=== PATIENT | male | born 1975 | race Caucasian/White ===

== ENCOUNTER 2017-03-27 11:19 | Emergency (ER) | payer BC, OTHER ==
[2017-03-27 11:30] VITALS: PULSE 65; RESP 16; TEMP 98.4; O2SAT 94
--- NOTE | 2017-03-27 11:33 | EDPHY ---
H & P Time Seen by Provider: 03/27/17 11:23 HPI/ROS: CHIEF COMPLAINT: Head trauma and facial laceration HISTORY OF PRESENT ILLNESS: Arrives by EMS, not a trauma activation. 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 Did not lose consciousness. Describes pain in the site of the impact with the laceration and some bleeding. Pain is mild to medium. No vomiting. No visual symptoms. No neck or back pain. REVIEW OF SYSTEMS: Eye: no change in vision, no double vision ENT: no sore throat Cardiac: no chest pain or syncope Pulmonary: no cough or SOB Abdomen: no vomiting, diarrhea, abdominal pain Musculoskeletal: no back pain or neck pain Skin: Forehead laceration Neuro: Mild headache only at the site of the impact. Constitutional: no fever : no urinary symptoms A comprehensive 10 point review of systems is otherwise negative aside from elements mentioned in the history of present illness. 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 Eyes: No scleral icterus. ENT, Mouth: Normal mucous membranes. Extraocular motion intact. No bruising around the eyes or behind the ears on the mastoid. Respiratory: Normal respiratory effort, breath sounds equal, lungs are clear to auscultation. Cardiovascular: Regular rate and rhythm. Gastrointestinal: Abdomen is soft and non tender. Neurological: Alert and oriented x3. Normally conversant. Face symmetric, normal movement and sensation in all extremities. Normal [id number] bilaterally and no pronator drift and no tremor. Skin: 1 cm left forehead laceration with surrounding 2 cm hematoma. Musculoskeletal: No cervical thoracic or lumbar spine tenderness. Psychiatric: Not agitated. Emergency Department course/MDM: Cervical spine cleared clinically. Low likelihood clinically for intracranial bleed or skull fracture. Procedure: Laceration repair. Verbal consent was obtained from the patient. The 1 cm laceration on the left forehead was anesthetized using 0.5% bupivacaine with epinephrine. The wound was irrigated with standard emergency department protocol, draped and explored. There were no deep structures involved. No foreign body found. The wound was repaired with 6 0 Prolene. The wound repair was simple. Excellent hemostasis was obtained. Wound care instructions were discussed and the patient was warned regarding scarring. The procedure was performed by myself. Smoking Status: Never smoked Constitutional: Initial Vital Signs Temperature (C) 36.9 C 03/27/17 11:27 Heart Rate 65 03/27/17 11:27 Respiratory Rate 16 03/27/17 11:27 Blood Pressure 125/85 H 03/27/17 11:27 O2 Sat (%) 94 03/27/17 11:27 O2 Delivery Mode Room Air Medical Decision Making Differential Diagnosis: Differential diagnosis considered for head injury including but not limited to concussion, skull fracture, intraparenchymal contusion, subarachnoid, subdural and epidural hematoma. Departure - Departure Disposition: Home, Routine, Self-Care Clinical Impression: Facial laceration Qualifiers: Encounter type: initial encounter Qualified Code(s): S01.81XA - Laceration without foreign body of other part of head, initial encounter Condition: Good Instructions: Laceration (ED), Head Injury (ED) Additional Instructions: Wound Care Follow-Up: Removal of sutures in 5 days. Suture removal is complimentary in uncomplicated cases. Infection or abnormal findings would require reevaluation by the MD. In that case, you may be billed. Referrals: Rosalio Begum MD [Medical Doctor] - As per Instructions
[2017-03-27 12:30] VITALS: BP 131/90
== END 2017-03-27 12:29 | disposition home or self-care (01) ==
LOC: EDUNIT# → EEVIPCON 11:19
PROC: 0HQ1XZZ Repair Face Skin, External Approach (ICD-10-PCS; principal; 2017-03-27)
DX: S01.81XA Laceration without foreign body of other part of head, initial encounter (principal); W22.8XXA Striking against or struck by other objects, initial encounter; Y92.69 Other specified industrial and construction area as the place of occurrence of the external cause; Y99.0 Civilian activity done for income or pay; Y93.89 Activity, other specified